=== PATIENT | male | born 1985 | race Caucasian/White ===

== ENCOUNTER → 2019-04-18 | Outpatient (CLI) | payer BC ==
--- NOTE | 2019-04-18 14:23 | XR ---
Left foot HISTORY: Pain in heel 2 views of the left foot Bone mineralization, joint spaces and alignment are maintained IMPRESSION: Normal left foot.
== END | disposition home or self-care (01) ==
LOC: RADXRMAIN 10:24
PROVIDERS: ATTEND Nurse Practitioner Family
DX: M79.672 Pain in left foot (principal)

== ENCOUNTER 2020-12-24 07:08 | Day surgery (SDC) | payer BC ==
[2020-12-22 11:56] VITALS: BMI 23.7
[~2020-12-24 07:08] MED LIST: LACTATED RINGERS 1,000 ML IV SCH
[2020-12-24] MEDS ORDERED: LIDOCAINE 1% (10MG/ML) FOR IV START INTRADERMA ONE (07:55)
[2020-12-24 07:58] VITALS: RESP 16; TEMP 98
[2020-12-24] MEDS ORDERED: LIDOCAINE 1% INJ 10MG/ML (20 ML MDV) ONE (08:14)
[2020-12-24] MEDS ORDERED: PROPOFOL 10 MG/ML 20 ML VIAL IV ONE (08:14)
--- NOTE | 2020-12-24 08:19 | P.HPIHPCON ---
History of Present Illness H&P Date: 12/24/20 75-year-old male presents today for upper endoscopy. He has had recent reflux for the past year and states that the last 6 months has progressively gotten worse. 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 He believes chocolate worsens his reflux. He has never had an upper endoscopy previously. Consent for Procedure: I have explained the operation/procedure to the patient, including the risks, benefits, side effects, alternative therapies (including not receiving the proposed treatment or service), the likelihood of the patient achieving his/her goals, and potential recuperation problems for the procedure/sedation/analgesia, as well as any blood products, if indicated. I also explained to the patient the risks, benefits and side effects of the alternatives, as well as the risks related to not receiving the proposed procedure, care, treatment, or services. - Review of Systems All systems: negative Past Medical History Past Medical History: GERD/Reflux Additional Past Medical History / Comment(s): SEASONAL ALLERGIES History of Any Multi-Drug Resistant Organisms: None Reported Additional Past Surgical History / Comment(s): WISDOM TEETH REMOVED UNDER ANESTHESIA Past Anesthesia/Blood Transfusion Reactions: No Reported Reaction Smoking Status: Never smoker - Past Family History Mother Family Medical History: No Reported History Medications and Allergies Home Medications Medication Instructions Recorded Confirmed Type Famotidine [Pepcid] 20 mg PO DAILY 12/22/20 12/24/20 History Fexofenadine HCl [Ann Marie Allergy] 180 mg PO DAILY 12/22/20 12/24/20 History Ibuprofen 600 mg PO Q6H PRN 12/22/20 12/24/20 History Allergies Allergy/AdvReac Type Severity Reaction Status Date / Time No Known Allergies Allergy Verified 12/24/20 07:47 Surgical - Exam Osteopathic Statement: *. No significant issues noted on an osteopathic structural exam other than those noted in the History and Physical/Consult. Vital Signs Temp Pulse Resp BP Pulse Ox 98.0 F 82 16 155/94 98 12/24/20 07:52 12/24/20 07:52 12/24/20 07:52 12/24/20 07:52 12/24/20 07:52 - General well nourished, no distress - Eyes normal ocular movement - ENT no hearing loss - Neck trachea midline - Respiratory normal respiratory effort - Abdomen Abdomen: soft, non tender Assessment and Plan Plan: 35-year-old male with GERD. Plan is for upper endoscopy for further evaluation. Risks, benefits and alternatives have been provided to the patient. He did provide consent. Further recommendations after procedure.
[2020-12-24] MEDS ORDERED: IV FLUID CONTINUATION 1,000 ML IV ONE (08:27)
--- NOTE | 2020-12-24 08:27 | P.PCN ---
Date of Procedure: 12/24/20 Preoperative Diagnosis: GERD Postoperative Diagnosis: Hiatal hernia Gastritis Procedure(s) Performed: EGD with biopsy Anesthesia: MAC Surgeon: Aba Vera Pathology: other (Biopsies of antrum, duodenum, esophagus) Condition: stable Disposition: same day Indications for Procedure: 35-year-old male with GERD that has been worsening over the past 6 months. Risks, benefits and alternatives were provided to the patient. He did provide consent prior to attending the endoscopy suite. Operative Findings: Mild hiatal hernia Gastritis Description of Procedure: The patient was brought to the endoscopy suite and placed in left lateral decubitus position and adequate sedation was achieved using conscious sedation. A bite block was placed and endoscope was placed in the oropharynx and advanced under endoscopic visualization. The endoscope was advanced through the esophagus into the stomach, through the gastric antrum and into the pylorus. The third portion of duodenum was visualized. The endoscope was then slowly withdrawn. The first portion of the duodenum was noted to have inflammatory changes. Biopsies were taken. The antrum was noted for changes. Biopsies were taken. The gastric body distended normally and the gastric folds appeared normal and flattened with insufflation. A retroflexed view of the fundus and GE junction revealed a mild hiatal hernia. The esophagus appeared endoscopically normal. Biopsies were taken. Excess air was removed and the scope was withdrawn and the procedure was completed. The patient was then sent to PACU in stable condition.
[2020-12-24 08:53] VITALS: BP 126/85; PULSE 59
== END 2020-12-24 09:00 | disposition home or self-care (01) ==
LOC: ORWHC2ENDO 07:08
PROVIDERS: ATTEND Surgery
DX: K21.00 Gastro-esophageal reflux disease with esophagitis, without bleeding (principal); K29.50 Unspecified chronic gastritis without bleeding; K44.9 Diaphragmatic hernia without obstruction or gangrene; J30.2 Other seasonal allergic rhinitis; Z98.890 Other specified postprocedural states; Z79.899 Other long term (current) drug therapy
CPT/HCPCS: 88305; 43239; J2001; J2704

== ENCOUNTER → 2024-08-01 | Outpatient (CLI) | payer BC | END | disposition home or self-care (01) | LOC: LABWHC1 09:46 | PROVIDERS: ATTEND Dermatology | DX: L64.8 Other androgenic alopecia (principal); Z79.899 Other long term (current) drug therapy | CPT/HCPCS: 36415; 84153 ==